=== PATIENT | male | born 1960 | race African-American/Black ===

== ENCOUNTER 2017-09-22 10:50 | Observation (INO) | payer OTHER ==
[2017-09-22] MEDS ORDERED: ASPIRIN 81 MG TABLET, CHEWABLE PO ONE (10:53)
[2017-09-22 11:15] LABS: ABSOLUTE EOSINOPHILS # (AUTO) 0.2 10^3/uL (0.0-0.6); ABSOLUTE LYMPHOCYTES (AUTO) 1.5 10^3/uL (0.5-4.7); ABSOLUTE MONOCYTES (AUTO) 0.7 10^3/uL (0.1-1.4); ABSOLUTE NEUT (AUTO) 3.3 10^3/uL (1.7-8.2); BASOPHILS % (AUTO) 0.8 % (0-2); EOSINOPHILS % (AUTO) 3.7 % (0-6); HEMATOCRIT 46.5 % (37.9-51.0); HGB HCT DIFFERENCE 1.5; MEAN CORPUSCULAR HEMOGLOBIN 31.9 pg (27.0-33.4); MEAN CORPUSCULAR HGB CONC 34.4 g/dL (32.0-36.0); MEAN CORPUSCULAR VOLUME 93 fl (80-97); MONOCYTES % (AUTO) 11.5 % (3-13); RED BLOOD COUNT 5.02 10^6/uL (4.35-5.55); WHITE BLOOD COUNT 5.7 10^3/uL (4.0-10.5)
--- NOTE | 2017-09-22 11:24 | RADIOLOGY REPORT (SQ) ---
EXAM DESCRIPTION: CHEST SINGLE VIEW COMPLETED DATE/TIME: 09/22/2017 11:12 am REASON FOR STUDY: bed 2 cp COMPARISON: None. EXAM PARAMETERS: NUMBER OF VIEWS: One view. TECHNIQUE: Single frontal radiographic view of the chest acquired. RADIATION DOSE: NA LIMITATIONS: None. FINDINGS: LUNGS AND PLEURA: Pulmonary vascular congestion. Cannot exclude a limited infiltrate in t he lingula. Minimal left pleural effusion. MEDIASTINUM AND HILAR STRUCTURES: No masses. Contour normal. HEART AND VASCULAR STRUCTURES: Heart size is borderline. There is no failure. BONES: No acute findings. HARDWARE: None in the chest. OTHER: No other significant finding. IMPRESSION: Borderline cardiomegaly with no failure. Cannot exclude a limited lingular pneumonia. TECHNICAL DOCUMENTATION: JOB ID: [id number] [employer]- All Rights Reserved
[2017-09-22 11:44] LABS: ALANINE AMINOTRANSFERASE 60 U/L (21-72); ALKALINE PHOSPHATASE 105 U/L (38-126); ANION GAP 9 (5-19); ASPARTATE AMINO TRANSFERASE 32 U/L (17-59); BILIRUBIN,DIRECT 0.5 mg/dL (0.0-0.4); BILIRUBIN,TOTAL 1.3 mg/dL (0.2-1.3); BLOOD UREA NITROGEN 11 mg/dL (7-20); CALCIUM 9.7 mg/dL (8.4-10.2); CARBON DIOXIDE 29 mmol/L (22-30); CHLORIDE 102 mmol/L (98-107); CREATINE KINASE 157 U/L (55-170); CREATININE RESULT 0.77 mg/dL (0.52-1.25); GLUCOSE 116 mg/dL (75-110); POTASSIUM 4.5 mmol/L (3.6-5.0); SODIUM 140.4 mmol/L (137-145); TOTAL PROTEIN 7.3 g/dL (6.3-8.2)
[2017-09-22 11:56] LABS: CREATINE KINASE MB 3.14 ng/mL (<4.55)
[2017-09-22 12:09] LABS: TROPONIN I 0.091 ng/mL
--- NOTE | 2017-09-22 13:05 | ER Document Report ---
ED Cardiac - General Chief Complaint: Shortness Of Breath Stated Complaint: CHEST PAIN Time Seen by Provider: 09/22/17 12:22 Notes: The patient is a 57-year-old male, past medical history hypertension, presents with 1 week of shortness of breath, dyspnea on exertion and intermittent left anterior chest pain that is worse with exertion. He went to his primary care physician at the [facility] this morning and was sent to the ER for further evaluation and treatment. The patient is not having any chest pain at rest. He denies leg swelling, fevers, nausea, vomiting, back pain, headache, numbness, tingling , syncope or abdominal pain. TRAVEL OUTSIDE OF THE [place] IN LAST 30 DAYS: No - Related Data Allergies/Adverse Reactions: shellfish derived Allergy (Unknown, Verified 09/22/17 12:26) Past Medical History - General Information source: Patient - Social History Smoking Status: Former Smoker Chew tobacco use (# tins/day): No Frequency of alcohol use: None Drug Abuse: None Family History: Reviewed & Not Pertinent Patient has suicidal ideation: No Patient has homicidal ideation: No - Past Medical History Cardiac Medical History: Reports: Hx Hypertension Renal/ Medical History: Denies: Hx Peritoneal Dialysis Review of Systems - Review of Systems Notes: REVIEW OF SYSTEMS: CONSTITUTIONAL: -fevers, -chills EENT: -eye pain, -difficulty swallowing, -nasal congestion CARDIOVASCULAR: +chest pain, -syncope. RESPIRATORY: -cough, +SOB GASTROINTESTINAL: -abdominal pain, - nausea, -vomiting, -diarrhea GENITOURINARY: -dysuria, -hematuria MUSCULOSKELETAL: -back pain, -neck pain SKIN: -rash or skin lesions. HEMATOLOGIC: -easy bruising or bleeding. LYMPHATIC: -swollen, enlarged glands. NEUROLOGICAL: -altered mental status or loss of consciousness, -headache, - neurologic symptoms PSYCHIATRIC: -anxiety, -depression. ALL OTHER SYSTEMS REVIEWED AND NEGATIVE. Physical Exam - Vital signs Vitals: Pulse Ox 93 09/22/17 10:53 - Notes Notes: PHYSICAL EXAMINATION: GENERAL: Well-appearing, well-nourished and in no acute distress. HEAD: Atraumatic, normocephalic. EYES: Pupils equal round and reactive to light, extraocular movements intact, sclera anicteric, conjunctiva are normal. ENT: nares patent, oropharynx clear without exudates. Moist mucous membranes. NECK: Normal range of motion, supple without lymphadenopathy LUNGS: Crackles in lower right lobe. Mild tachypnea. HEART: Tachycardia, regular rhythm. ABDOMEN: Soft, nontender, normoactive bowel sounds. No guarding, no rebound. No masses appreciated. EXTREMITIES: Normal range of motion, no pitting or edema. No cyanosis. NEUROLOGICAL: Cranial nerves grossly intact. Normal speech, normal gait. Normal sensory and motor exams. PSYCH: Normal mood, normal affect. SKIN: Warm, Dry, normal turgor, no rashes or lesions noted. Course - Re-evaluation Re-evalutation: Patient currently chest pain-free. His EKG shows LVH, but no STEMI criteria. Repeat EKG performed 1 hour later does not show any acute changes. His first troponin is 0.091. No old values to compare this to. CTA ordered due to tachycardia, tachypnea, shortness of breath and chest pain. CTA shows evidence of pulmonary edema. Patient has no history of CHF. Repeat troponin is 0.099 and patient remains without chest pain. Suspect the bump in troponin is from heart strain from new onset CHF and pulmonary edema. A dose of Lovenox was provided to the patient. Patient's pulse ox went down to 88% on room air and improved with 2 L nasal cannula. 09/22/17 14:[address] Thomas and he says the patient can remain at [facility]. Spoke to Dulce Maloney and she will admit patient as inpatient to telemetry for further evaluation and treatment. Lasix and Nitro provided to patient to help with pulmonary edema and hypertension. - Vital Signs Vital signs: Temp Pulse Resp BP Pulse Ox 98.5 F 41 H 154/111 H 91 L 09/22/17 11:06 09/22/17 13:01 09/22/17 13:00 09/22/17 13:01 - Laboratory Result Diagrams: 09/22/17 11:03 09/22/17 11:03 Laboratory results interpreted by me: 09/22/17 09/22/17 11:03 11:03 Glucose 116 H Direct Bilirubin 0.5 H NT-Pro-B Natriuret Pep 1290 H - Diagnostic Test Radiology reviewed: Image reviewed, Reports reviewed Radiology results interpreted by me: CTA Chest: 1. Bilateral effusions and cardiomegaly, patchy infiltrates as above. Findings likely related to congestive failure. 2. No pulmonary embolus detected. - EKG Interpretation by Nh EKG shows normal: Sinus rhythm, QRS Complexes Rate: Tachycardia Voltage: Consistant with LVH When compared to previous EKG there are: No significant change Critical Care Note - Critical Care Note Total time excluding time spent on procedures (mins): 35 Discharge - Discharge Clinical Impression: Hypoxia Pulmonary edema Qualifiers: Chronicity: acute Qualified Code(s): J81.0 - Acute pulmonary edema Chest pain Qualifiers: Chest pain type: unspecified Qualified Code(s): R07.9 - Chest pain, unspecified Condition: Stable Disposition: ADMITTED INPATIENT Admitting Provider: Hospitalist - [facility] Admitted: Telemetry
[2017-09-22] MEDS: ENOXAPARIN SODIUM INJ 120 MG/0.8 ML DISP.SYRIN SUBCUT SCH (13:11)
--- NOTE | 2017-09-22 13:11 | EKG REPORT ---
SEVERITY:- ABNORMAL ECG - SINUS TACHYCARDIA WITH IRREGULAR RATE 90-128 LEFT ATRIAL ABNORMALITY LEFT VENTRICULAR HYPERTROPHY BORDERLINE PROLONGED QT INTERVAL : Confirmed by: Franklin Thorne MD 22-Sep-2017 13:10:23
--- NOTE | 2017-09-22 13:11 | EKG REPORT ---
SEVERITY:- ABNORMAL ECG - SINUS TACHYCARDIA PROBABLE LEFT ATRIAL ABNORMALITY LEFT VENTRICULAR HYPERTROPHY BORDERLINE PROLONGED QT INTERVAL : Confirmed by: Franklin Thorne MD 22-Sep-2017 13:10:38
--- NOTE | 2017-09-22 13:41 | RADIOLOGY REPORT (SQ) ---
EXAM DESCRIPTION: CTA CHEST COMPLETED DATE/TIME: 09/22/2017 1:26 pm REASON FOR STUDY: tachypnea, SOB, chest pain, elevated troponin COMPARISON: Radiographs. TECHNIQUE: CT scan of the chest performed using helical scanning technique with dynamic intravenous contrast injection. Images reviewed with lung, soft tissue and bone windows. Reconstructed coronal and sagittal MPR images reviewed. Additional 3 dimensional post-processing performed to develop Maximal Intensity Projection images ([place] P). All images stored on PACS. All CT scanners at this facility use dose modulation, iterative reconstruction, and/or weight based d osing when appropriate to reduce radiation dose to as low as reasonably achievable (ALARA). [facility]: Dose Right [facility]: CareDose [facility]: Dose Right [facility]: Teradose 4D [facility]: Clickberry CONTRAST TYPE AND DOSE: contrast/concentration: Isovue 370.00 mg/ml; Total Contrast Delivered: 82.0 ml; Total Saline Delivered: 100.0 ml Contrast bolus optimized for the pulmonary arteries. Not diagnostic for the aorta RENAL FUNCTION: Creatinine 0.77 RADIATION DOSE: CT Rad equipment meets quality standard of care and radiation dose reduction techniq ues were employed. CTDIvol: 13.2 - 24.6 mGy. DLP: 941 mGy-cm. . LIMITATIONS: None. FINDINGS: LUNGS AND PLEURA: Volume loss and patchy airspace disease which is most confluent in the l eft upper lobe. Additional patchy ground-glass densities in the right upper lobe and right lower lob e. Mild volume loss left lower lobe. Small bilateral effusions. AORTA AND GREAT VESSELS: No overt aortic aneurysm. Aberrent right subclavian artery. Assessment for dissection and patency otherwise not possible due to lack of enhancement. HEART: Enlarged. No pericardial effusion. Moderate to marked coronary artery calcifications. PULMONARY ARTERIES: No emboli visualized in the main pulmonary arteries or the segmental branches. HILAR AND MEDIASTINAL STRUCTURES: Small nodes in the gilbert and mediastinum. Some of these are calcifi ed suggesting previous granulomatous disease. HARDWARE: None in the chest. UPPER ABDOMEN: No significant findings. Limited exam. THYROID AND OTHER SOFT TISSUES: No masses. No adenopathy. BONES: No acute or significant finding. 3D MIPS: Confirm above findings. OTHER: No other significant finding. IMPRESSION: 1. Bilateral effusions and cardiomegaly, patchy infiltrates as above. Findings likely r elated to congestive failure. 2. No pulmonary embolus detected. COMMENT: Quality ID # [id number]: Final reports with documentation of one or more dose reduction techniques (e.g., Automated exposure control, adjustment of the mA and/or kV according to patient size, use of iterative reconstruction technique) TECHNICAL DOCUMENTATION: JOB ID: [id number] [employer]- All Rights Reserved
[2017-09-22] MEDS ORDERED: FUROSEMIDE INJ/PF 20 MG/2 ML SDV IV ONE (13:58)
[2017-09-22] MEDS: NITROGLYCERIN 0.4 MG/TAB 25 TAB/BOTTLE SL PRN ×2 (14:49→15:01)
[2017-09-22] MEDS ORDERED: NITROGLYCERIN 0.4 MG/TAB 25 TAB/BOTTLE SL PRN (15:26)
[2017-09-22] MEDS ORDERED: TEMAZEPAM 15 MG CAPSULE PO PRN (15:26)
[2017-09-22] MEDS ORDERED: ONDANSETRON HCL INJ/PF 4 MG/2 ML SDV IV PRN (15:26)
--- NOTE | 2017-09-22 16:04 | PDOC H&P ---
History of Present Illness Admission Date/PCP: 09/22/17 14:48 Patient complains of: Increasing shortness of breath History of Present Illness: KALA GUILLEN is a 57 year old male male, with past medical history of hypertension, who presents with 1 week of shortness of breath, dyspnea on exertion and intermittent left anterior chest pain that is worse with exertion. He also admits to orthopnea over the last 2 days prior to admission. He has slept the last 2 nights sitting in a chair. He went to his primary care physician at the [facility] this morning and was sent to the ER for further evaluation and treatment. The patient is not having any chest pain at rest. He denies leg swelling, fevers, nausea, vomiting, back pain, headache, numbness, tingling , syncope or abdominal pain. He denies any myalgias or arthalgias. Past Medical History Cardiac Medical History: Reports: Hypertension Pulmonary Medical History: Reports: None EENT Medical History: Reports: None Neurological Medical History: Reports: None Endocrine Medical History: Reports: None Renal/ Medical History: Reports: None Malignancy Medical History: Reports: None GI Medical History: Reports: None Musculoskeltal Medical History: Reports: None Skin Medical History: Reports: Eczema Psychiatric Medical History: Reports: None Traumatic Medical History: Reports: None Hematology: Reports: None Infectious Medical History: Reports: None Past Surgical History Past Surgical History: Reports: None Social History Information Source: Patient Lives with: Family Smoking Status: Former Smoker Cigarettes Packs Per Day: 0.5 Number of Years Smokin Frequency of Alcohol Use: Occasional Hx Recreational Drug Use: No - Advance Directive Resuscitation Status: Full Code Surrogate healthcare decision maker:: No designated MPOA. Has 3 adult children Family History Family History: Reviewed & Not Pertinent, Hypertension Parental Family History Reviewed: Yes Children Family History Reviewed: Yes Sibling(s) Family History Reviewed.: Yes Medication/Allergy Home Medications: No Home Medications 09/22/17 Allergies/Adverse Reactions: shellfish derived Allergy (Unknown, Verified 09/22/17 12:26) Review of Systems Constitutional: PRESENT: weight gain Eyes: ABSENT: visual disturbances Ears: ABSENT: hearing changes Cardiovascular: PRESENT: dyspnea on exertion, edema, orthropnea Respiratory: PRESENT: cough, dyspnea Gastrointestinal: ABSENT: abdominal pain, constipation, diarrhea, hematemesis, hematochezia, nausea, vomiting Genitourinary: ABSENT: dysuria, hematuria Musculoskeletal: ABSENT: joint swelling Integumentary: ABSENT: rash, wounds Neurological: ABSENT: abnormal gait, abnormal speech, confusion, dizziness, focal weakness, syncope Psychiatric: ABSENT: anxiety, depression, homidical ideation, suicidal ideation Endocrine: ABSENT: cold intolerance, heat intolerance, polydipsia, polyuria Hematologic/Lymphatic: ABSENT: easy bleeding, easy bruising Physical Exam Vital Signs: Temp Pulse Resp BP Pulse Ox 98.5 F 42 H 163/130 H 92 09/22/17 11:06 09/22/17 14:55 09/22/17 14:55 09/22/17 14:55 General appearance: PRESENT: no acute distress, well-developed, well-nourished Head exam: PRESENT: atraumatic, normocephalic Eye exam: PRESENT: conjunctiva pink, EOMI, PERRLA. ABSENT: scleral icterus Ear exam: PRESENT: normal external ear exam Neck exam: ABSENT: carotid bruit, JVD, lymphadenopathy, thyromegaly Respiratory exam: PRESENT: crackles, symmetrical, unlabored - bilateral bases Cardiovascular exam: PRESENT: RRR. ABSENT: diastolic murmur, rubs, systolic murmur Pulses: PRESENT: normal dorsalis pedis pul Vascular exam: PRESENT: normal capillary refill GI/Abdominal exam: PRESENT: normal bowel sounds, soft. ABSENT: distended, guarding, mass, organolmegaly, rebound, tenderness Rectal exam: PRESENT: deferred Extremities exam: PRESENT: full ROM, +1 edema - bilateral to ankles. ABSENT: calf tenderness, clubbing, pedal edema Musculoskeletal exam: PRESENT: ambulatory Neurological exam: PRESENT: alert, awake, oriented to person, oriented to place , oriented to time, oriented to situation, CN II-XII grossly intact. ABSENT: motor sensory deficit Psychiatric exam: PRESENT: appropriate affect, normal mood. ABSENT: homicidal ideation, suicidal ideation Skin exam: PRESENT: dry, intact, warm. ABSENT: cyanosis, rash Results Impressions: Chest X-Ray 09/22/17 10:53 IMPRESSION: Borderline cardiomegaly with no failure. Cannot exclude a limited lingular pneumonia. Chest/Abdomen CTA 09/22/17 12:23 IMPRESSION: 1. Bilateral effusions and cardiomegaly, patchy infiltrates as above. Findings likely related to congestive failure. 2. No pulmonary embolus detected. Assessment & Plan - Diagnosis (1) Acute congestive heart failure Qualifiers: Congestive heart failure type: unspecified congestive heart failure type Qualified Code(s): I50.9 - Heart failure, unspecified Plan: Will diurese. Add beta saturnino. Continue linn inhibitor. Obtain transthoracic echo. Cardiology referral after echo is obtained (2) Chest pain Qualifiers: Chest pain type: unspecified Qualified Code(s): R07.9 - Chest pain, unspecified Is this a current diagnosis for this admission?: Yes Plan: Serial troponins, aspirin and nitrates prn (3) Hypoxia Is this a current diagnosis for this admission?: Yes Plan: Secondary to fluid volume overload (4) Pulmonary edema Qualifiers: Chronicity: acute Qualified Code(s): J81.0 - Acute pulmonary edema Is this a current diagnosis for this admission?: Yes Plan: Will diurese - Time Time Spent: 50 to 70 Minutes Critical Time spent with patient: 25-34 minutes Medications reviewed and adjusted accordingly: Yes Anticipated discharge: Home
[2017-09-22] MEDS: METOPROLOL TARTRATE PF/INJ 5 MG/5 ML SDV IV PRN (16:38)
[2017-09-22] MEDS: METOPROLOL TARTRATE 25 MG TABLET PO SCH (21:41)
[2017-09-22] MEDS: ATORVASTATIN CALCIUM 40 MG TABLET PO SCH (21:41)
[2017-09-22] MEDS ORDERED: METOPROLOL TARTRATE 25 MG TABLET PO SCH (22:00)
[2017-09-23] MEDS: METOPROLOL TARTRATE PF/INJ 5 MG/5 ML SDV IV PRN (00:49)
[2017-09-23] MEDS ORDERED: ENALAPRILAT DIHYDRATE INJ/PF 1.25 MG/1 ML SDV IV ONE (03:00)
[2017-09-23 08:20] LABS: HEMATOCRIT 46.1 % (37.9-51.0); HEMOGLOBIN 15.9 g/dL (13.5-17.0); HGB HCT DIFFERENCE 1.6; MEAN CORPUSCULAR HEMOGLOBIN 32.1 pg (27.0-33.4); MEAN CORPUSCULAR HGB CONC 34.5 g/dL (32.0-36.0); MEAN CORPUSCULAR VOLUME 93 fl (80-97); RED BLOOD COUNT 4.96 10^6/uL (4.35-5.55); WHITE BLOOD COUNT 5.2 10^3/uL (4.0-10.5)
[2017-09-23 08:43] LABS: ANION GAP 10 (5-19); BLOOD UREA NITROGEN 16 mg/dL (7-20); CALCIUM 9.8 mg/dL (8.4-10.2); CARBON DIOXIDE 29 mmol/L (22-30); CHLORIDE 100 mmol/L (98-107); CHOLESTEROL 147.09 mg/dL (0-200); CREATININE RESULT 0.89 mg/dL (0.52-1.25); Direct HDL 29 mg/dL (>40); GLUCOSE 114 mg/dL (75-110); POTASSIUM 4.7 mmol/L (3.6-5.0); SODIUM 138.5 mmol/L (137-145); TRIGLYCERIDES 101 mg/dL (<150)
[2017-09-23 08:53] LABS: DIRECT LDL 105 mg/dL (<100)
[2017-09-23] MEDS: LISINOPRIL 10 MG TABLET PO SCH (09:46)
[2017-09-23] MEDS: ASPIRIN 81 MG TABLET, ENT COATED PO SCH (09:46)
[2017-09-23] MEDS: ENOXAPARIN SODIUM INJ 120 MG/0.8 ML DISP.SYRIN SUBCUT SCH ×2 (09:47→21:02)
[2017-09-23] MEDS: METOPROLOL TARTRATE 25 MG TABLET PO SCH (09:47)
[2017-09-23] MEDS ORDERED: FUROSEMIDE 40 MG TABLET PO ONE (09:47)
[2017-09-23] MEDS ORDERED: LORATADINE 10 MG TABLET PO ONE (09:49)
--- NOTE | 2017-09-23 10:30 | Physician Advisory Note ---
Physician Advisor ProgressNote .: Pursuant to the plan for [facility], I have reviewed the medical record for this patient. Physician Advisor Statement: Nice documentation of Acute Pulm Edema, Hypoxemia (no indication of increased work of breathing being present to support dx of Ac Resp Failure instead). Please consider documentin. "Acute ____ type CHF" (ok to wait for ECHO report, just don't forget to include type after that) 2. "CP, suspect due to " 3. Medical necessity: if pt not felt safe to go home today, please document ongoing clinical reasons, & may then consider change to Inpatient status (breathing not back to baseline? hemodynamically not stable? "I AM CONCERNED ABOUT "?) (But if just held another night due to waiting for testing or other eval to be done, but pt stable & otherwise ok for d/c clnically, then keep as Obs.) Status: Appropriately brought in as Outpt Obs initially. See above. CK Supporting findings in chart for dx Acute ___ type CHF: (+) rales, BLE edema ankles, cardiomegaly, acute pulmonary edema, ...
--- NOTE | 2017-09-23 11:12 | RADIOLOGY REPORT (SQ) ---
EXAM DESCRIPTION: PARANASAL SINUSES COMPLETED DATE/TIME: 09/23/2017 10:40 am REASON FOR STUDY: right nasal drainage COMPARISON: None. NUMBER OF VIEWS: Three views TECHNIQUE: Images of the paranasal sinuses acquired. LIMITATIONS: None. FINDINGS: ORBITS: No fracture. No foreign body. SINUSES: There is opacification of the right maxillary sinus and likely opacification of the right fr ontal sinus. FACIAL BONES: No fracture. OTHER: No other significant finding. IMPRESSION: Sinus disease as described. TECHNICAL DOCUMENTATION: JOB ID: [id number] [employer]- All Rights Reserved
[2017-09-23] MEDS ORDERED: FLUTICASONE NASAL SPRAY 50 MCG/SPRY 120 SPRAY/16 GM NASL ONE (11:30)
[2017-09-23] MEDS ORDERED: AMOXICILLIN TR/POT CLAVULANATE 500-125 MG TAB PO ONE (15:00)
--- NOTE | 2017-09-23 16:58 | XCELERA REPORT ---
[address] [address] Transthoracic Echocardiogram Report Name: KALA GUILLEN Age: 57 yrs Gender: Male : 1960 Patient Status: Inpatient Patient Location: [address] [place] [address] Study Date: 09/23/2017 11:52 AM Height: 71 in Weight: 240 lb BSA: 2.3 m2 Procedure: A two-dimensional transthoracic echocardiogram with color flow and Doppler was performed. Study Quality: Fair. Reason For Study: DYSNEA / CHEST PAIN. History: DYSNEA / CHEST PAIN. Ordering Physician: RUIZ YARBROUGH Performed By: Janie Hoover Interpretation Summary The left ventricle is normal in size. There is normal left ventricular wall thickness. LV EF is 45% to 50% Left ventricular systolic function is mildly reduced. Doppler measurements suggest normal left ventricular diastolic function There is mild global hypokinesis of the left ventricle. There is no thrombus. The right ventricle is grossly normal size. The right atrium is normal. The left atrium is mildly dilated. There is no evidence of mitral valve prolapse. There is no mitral valve stenosis. There is a mild amount of mitral regurgitation There is no aortic valve stenosis There is no LVOT obstruction. No aortic regurgitation is present. There is no tricuspid stenosis. There is mild pulmonary hypertension by echo RVSP is 37 mm of Hg , with RA mean of 10. There is no pericardial effusion. MMode/2D Measurements & Calculations RVDd: 4.0 cm LVIDd: 5.6 cm FS: 22.5 % Ao root diam: 3.1 cm IVSd: 0.97 cm LVIDs: 4.3 cm EDV(Teich): 150.7 ml LVPWd: 1.0 cm ESV(Teich): 83.2 ml Ao root area: 7.7 cm2 EF(Teich): 44.8 % Doppler Measurements & Calculations MV E max mis: MV dec slope: Ao V2 max: LV V1 max P.3 cm/sec 115.3 cm/sec 1.4 mmHg MV A max mis: 704.5 cm/sec2 Ao max PG: LV V1 max: 32.1 cm/sec MV dec time: 5.3 mmHg 59.7 cm/sec MV E/A: 2.6 0.12 sec MR max mis: PA V2 max: TR max mis: 660.8 cm/sec 62.2 cm/sec 256.4 cm/sec MR max PG: PA max P.5 mmHg TR max P.6 mmHg 26.3 mmHg Left Ventricle The left ventricle is normal in size. There is normal left ventricular wall thickness. LV EF is 45% to 50%. Left ventricular systolic function is mildly reduced. Doppler measurements suggest normal left ventricular diastolic function. There is mild global hypokinesis of the left ventricle. There is no thrombus. Right Ventricle The right ventricle is grossly normal size. Atria The right atrium is normal. The left atrium is mildly dilated. Mitral Valve There is no evidence of mitral valve prolapse. There is no vegetation seen on the mitral valve. There is no mitral valve stenosis. There is a mild amount of mitral regurgitation. Aortic Valve There is no aortic valvular vegetation. There is no aortic valve stenosis. There is no LVOT obstruction. No aortic regurgitation is present. Tricuspid Valve There is no tricuspid stenosis. There is a trace amount of tricuspid regurgitation. There is mild pulmonary hypertension by echo. RVSP is 37 mm of Hg , with RA mean of 10. Pulmonic Valve There is no pulmonic valvular stenosis. There is no pulmonic valvular regurgitation. Great Vessels The aortic root is normal size. Effusions There is no pericardial effusion. : RUIZ YARBROUGH > Fabi Ridley
[2017-09-23] MEDS ORDERED: CLONIDINE HCL 0.1 MG TABLET PO PRN (17:36)
--- NOTE | 2017-09-23 17:50 | PDOC PROGRESS REPORT ---
Subjective Progress Note for:: 09/23/17 Subjective:: Patient states he feels better and would like to go home. He went on to complain about right sided nasal and sinus congestion. Reason For Visit: SOB, ACUTE CONGESTIVE HEART FAILURE Physical Exam Vital Signs: Temp Pulse Resp BP Pulse Ox 97.4 F 96 18 167/124 H 97 09/23/17 15:31 09/23/17 15:31 09/23/17 15:31 09/23/17 15:31 09/23/17 15:31 Intake & Output 09/22/17 09/23/17 09/24/17 06:59 06:59 06:59 Intake Total 1246 Balance 1246 Weight 108.8 kg General appearance: PRESENT: no acute distress, obese Head exam: PRESENT: atraumatic, normocephalic Eye exam: PRESENT: EOMI. ABSENT: scleral icterus Mouth exam: PRESENT: moist Neck exam: ABSENT: carotid bruit, JVD, lymphadenopathy, thyromegaly Respiratory exam: PRESENT: clear to auscultation meera. ABSENT: rales, rhonchi, wheezes Cardiovascular exam: PRESENT: RRR. ABSENT: diastolic murmur, rubs, systolic murmur Pulses: PRESENT: normal dorsalis pedis pul GI/Abdominal exam: PRESENT: normal bowel sounds, soft. ABSENT: distended, guarding, mass, organolmegaly, rebound, tenderness Rectal exam: PRESENT: deferred Extremities exam: PRESENT: full ROM. ABSENT: calf tenderness, clubbing, pedal edema Neurological exam: PRESENT: alert, awake, oriented to person, oriented to place , oriented to time, oriented to situation, CN II-XII grossly intact. ABSENT: motor sensory deficit Psychiatric exam: PRESENT: appropriate affect, normal mood. ABSENT: homicidal ideation, suicidal ideation Skin exam: PRESENT: dry, intact, warm. ABSENT: cyanosis, rash Results Laboratory Results: 09/23/17 07:49 09/23/17 07:49 09/23/17 09/23/17 07:49 07:49 WBC 5.2 RBC 4.96 Hgb 15.9 Hct 46.1 MCV 93 MCH 32.1 MCHC 34.5 RDW 13.0 Plt Count 225 Sodium 138.5 Potassium 4.7 Chloride 100 Carbon Dioxide 29 Anion Gap 10 BUN 16 Creatinine 0.89 Est GFR ( Amer) > 60 Est GFR (Non-Af Amer) > 60 Glucose 114 H Calcium 9.8 Triglycerides 101 Cholesterol 147.09 LDL Cholesterol Direct 105 H VLDL Cholesterol 20.0 HDL Cholesterol 29 L 09/22/17 09/23/17 09/23/17 19:39 01:27 07:49 Troponin I 0.113 0.122 0.091 Impressions: Chest X-Ray 09/22/17 10:53 IMPRESSION: Borderline cardiomegaly with no failure. Cannot exclude a limited lingular pneumonia. Chest/Abdomen CTA 09/22/17 12:23 IMPRESSION: 1. Bilateral effusions and cardiomegaly, patchy infiltrates as above. Findings likely related to congestive failure. 2. No pulmonary embolus detected. Sinuses X-Ray 09/23/17 00:00 IMPRESSION: Sinus disease as described. Assessment & Plan - Diagnosis (1) Hypertensive emergency Is this a current diagnosis for this admission?: Yes Plan: Patient presented with chest pain, sob and mildly elevated troponins. Patient blood pressure was 210/159 on admission. Patient currently on coreg, lisinopril , lasix, imdur and PRN clonidine. (2) Acute congestive heart failure Qualifiers: Congestive heart failure type: systolic Qualified Code(s): I50.21 - Acute systolic (congestive) heart failure Plan: Patient had mildly depressed EF on 45 to 50 present. This is most likely due to poorly controlled blood pressure. Patient now on coreg, lisinopril, imdur and lasix. Patient symptoms appear improved. (3) Chest pain Qualifiers: Chest pain type: unspecified Qualified Code(s): R07.9 - Chest pain, unspecified Is this a current diagnosis for this admission?: Yes Plan: Possible secondary to hypertension. Patient troponins were mildly elevated and he no longer has any chest pain. Patient will be referred to cardiology on discharge. (4) Hypoxia Is this a current diagnosis for this admission?: Yes Plan: Secondary to pulmonary edema now improved. (5) Pulmonary edema Qualifiers: Chronicity: acute Qualified Code(s): J81.0 - Acute pulmonary edema Is this a current diagnosis for this admission?: Yes Plan: Secondary to hypertension and CHF. Will continue with lasix. (6) Sinus congestion Is this a current diagnosis for this admission?: Yes Plan: Start patient on flonase and claratin. Patient may need to do angie pot at home. - Time Time Spent with patient: 15-24 minutes Anticipated discharge: Home Within: within 24 hours - Inpatient Certification Medical Necessity: Need Close Monitoring Due to Risk of Patient Decompensation - Patient blood pressure not well controlled.
[2017-09-23] MEDS ORDERED: ACETAMINOPHEN 325 MG TABLET PO PRN (20:01)
[2017-09-23] MEDS: FLUTICASONE NASAL SPRAY 50 MCG/SPRY 120 SPRAY/16 GM NASL SCH (21:02)
[2017-09-23] MEDS: ATORVASTATIN CALCIUM 40 MG TABLET PO SCH (21:03)
[2017-09-23] MEDS: CARVEDILOL 12.5 MG TABLET PO SCH (22:06)
[2017-09-24 07:42] LABS: ANION GAP 10 (5-19); BLOOD UREA NITROGEN 16 mg/dL (7-20); CARBON DIOXIDE 26 mmol/L (22-30); CHLORIDE 103 mmol/L (98-107); GLUCOSE 109 mg/dL (75-110); POTASSIUM 4.5 mmol/L (3.6-5.0); SODIUM 139.4 mmol/L (137-145)
[2017-09-24] MEDS: ENOXAPARIN SODIUM INJ 120 MG/0.8 ML DISP.SYRIN SUBCUT SCH (09:26)
[2017-09-24] MEDS: FLUTICASONE NASAL SPRAY 50 MCG/SPRY 120 SPRAY/16 GM NASL SCH (09:27)
[2017-09-24] MEDS: CARVEDILOL 12.5 MG TABLET PO SCH (09:27)
[2017-09-24] MEDS: LISINOPRIL 10 MG TABLET PO SCH (09:28)
[2017-09-24] MEDS: ASPIRIN 81 MG TABLET, ENT COATED PO SCH (09:28)
[2017-09-24 09:45] VITALS: BP 149/93
[2017-09-24] MEDS ORDERED: LORATADINE 10 MG TABLET PO SCH (10:00)
[2017-09-24] MEDS ORDERED: ISOSORBIDE MONONITRATE 30 MG TAB.ER.24H PO SCH (10:00)
--- NOTE | 2017-09-24 18:47 | PDOC DISCHARGE SUMMARY ---
General - Admit/Disc Date/PCP Admission Date/Primary Care Provider: 09/22/17 14:48 Discharge Date: 09/24/17 - Discharge Diagnosis (1) Hypertensive emergency Is this a current diagnosis for this admission?: Yes (3) Chest pain Is this a current diagnosis for this admission?: Yes (4) Hypoxia Is this a current diagnosis for this admission?: Yes (5) Pulmonary edema Is this a current diagnosis for this admission?: Yes (6) Sinus congestion Is this a current diagnosis for this admission?: Yes - Additional Information Resuscitation Status: Full Code Discharge Diet: Cardiac Discharge Activity: Activity As Tolerated, Balance Activity w/Rest, Weigh Daily Home Medications: Aspirin [Ecotrin 81 mg EC Tablet] 81 mg PO DAILY 30 Days #30 tabec 09/24/17 Atorvastatin Calcium [Lipitor 40 mg Tablet] 40 mg PO QHS 30 Days #30 tablet Carvedilol [Coreg 12.5 mg Tablet] 12.5 mg PO Q12 30 Days #60 tablet 09/24/17 Fluticasone Propionate [Flonase Nasal [place] 50 Mcg/[place] 16 gm] 2 spray NASL Q12 30 Days spray.pump 09/24/17 Isosorbide Mononitrate [Imdur 30 mg Tablet.er] 30 mg PO DAILY 30 Days #30 tab.er.24h 09/24/17 Lisinopril/Hydrochlorothiazide [Lisinopril-Hctz 20-25 mg Tab] 1 each PO DAILY # 30 tablet 09/24/17 Loratadine [Claritin 10 mg Tablet] 10 mg PO DAILY #30 tablet 09/24/17 Potassium Chloride 10 meq PO DAILY 30 Days #30 capsule.er 09/24/17 History of Present Illness Patient complains of: shortness of breath History of Present Illness: KALA GUILLEN is a 57 year old male presenting with progressive shortness of breath and intermittent chest pain. Hospital Course Hospital Course: Patient presented with progressive shortness of breath over 1 week and orthopnea. Patient had a cardiac echo which showed a slightly depressed EF of 45-50%. Patient also have pulmonary edema. Patient received Lasix which helped. Concerned that patient may have developed systolic heart failure from uncontrolled hypertension. Patient did present in hypertensive emergency and required multiple blood pressure medications to control his blood pressure. Patient also has obstructive sleep apnea and was supposed to use CPAP however he has not used his machine in over 8 years and states that his damage. Patient was advised to go to the [place] have his provider refer him to a library science professor at which point he will have a repeat sleep study done and given a new CPAP machine. Explained to patient that untreated obstructive sleep apnea could result in uncontrolled hypertension and heart failure and/or heart attack. Patient did have elevated troponin however this is most likely secondary to uncontrolled hypertension. Patient was started on Coreg 12.5 mg p.o. twice daily. Patient on lisinopril 20 mg and hydrochlorothiazide 25 mg. Patient also given potassium replacement as he he may need this being on a diuretic. Patient started on Imdur. Patient blood pressures did improve however his diastolic pressures tend to want to remain elevated. Advised patient that he should follow-up with his doctor and have his blood pressure medications adjusted gradually. Patient also has some hypoxemia but this is most likely related to his pulmonary edema. Patient states he was able to ambulate on the hallways and feel better while doing so. Patient counseled on a low-sodium diet and the importance of weighing himself. Patient denied any further symptoms after being treated. Patient did complain of sinus drainage. X-ray of the facial sinuses showed opacification of the right side of his face. Patient was started on Flonase and Claritin which he states he has noticed a difference. Patient was given a prescription for these medications on discharge. Physical Exam Vital Signs: Temp Pulse Resp BP Pulse Ox 97.5 F 93 18 149/93 H 96 09/24/17 09:54 09/24/17 09:54 09/24/17 09:54 09/24/17 09:54 09/24/17 09:54 Intake & Output 09/23/17 09/24/17 09/25/17 06:59 06:59 06:59 Intake Total 1246 1690 Balance 1246 1690 Weight 108.8 kg 104 kg General appearance: PRESENT: no acute distress, obese Head exam: PRESENT: normocephalic Eye exam: PRESENT: EOMI. ABSENT: scleral icterus Mouth exam: PRESENT: moist Neck exam: ABSENT: carotid bruit, JVD, lymphadenopathy, thyromegaly Respiratory exam: PRESENT: clear to auscultation meera. ABSENT: rales, rhonchi, wheezes Cardiovascular exam: PRESENT: RRR. ABSENT: diastolic murmur, rubs, systolic murmur GI/Abdominal exam: PRESENT: normal bowel sounds, soft. ABSENT: distended, guarding, mass, organolmegaly, rebound, tenderness Rectal exam: PRESENT: deferred Extremities exam: PRESENT: full ROM. ABSENT: calf tenderness, clubbing, pedal edema Neurological exam: PRESENT: alert, awake, oriented to person, oriented to place , oriented to time, oriented to situation, CN II-XII grossly intact. ABSENT: motor sensory deficit Psychiatric exam: PRESENT: appropriate affect, normal mood. ABSENT: homicidal ideation, suicidal ideation Skin exam: PRESENT: dry, intact, warm. ABSENT: cyanosis, rash Results Laboratory Results: 09/23/17 07:49 09/24/17 06:08 09/24/17 06:08 Sodium 139.4 Potassium 4.5 Chloride 103 Carbon Dioxide 26 Anion Gap 10 BUN 16 Creatinine 0.90 Est GFR ( Amer) > 60 Est GFR (Non-Af Amer) > 60 Glucose 109 Calcium 9.0 09/22/17 09/23/17 09/23/17 19:39 01:27 07:49 Troponin I 0.113 0.122 0.091 Impressions: Chest X-Ray 09/22/17 10:53 IMPRESSION: Borderline cardiomegaly with no failure. Cannot exclude a limited lingular pneumonia. Chest/Abdomen CTA 09/22/17 12:23 IMPRESSION: 1. Bilateral effusions and cardiomegaly, patchy infiltrates as above. Findings likely related to congestive failure. 2. No pulmonary embolus detected. Sinuses X-Ray 09/23/17 00:00 IMPRESSION: Sinus disease as described. Qualifiers PATEINT BEING DISCHARGED WITH ANY OF THE FOLLOWING DIAGNOSIS?: Heart Failure VTE patient discharged on overlapping Therapy?: Yes ID Pt discharged ACEI/ARBS?: Yes HF Pt being discharged on ACEI for LVEF less than 40%?: No HF Pt being discharged on ARBS for LVEF less than 40%?: No HF Pt discharged on evidence-based Beta Kirti:: Yes Plan Time Spent: Greater than 30 Minutes
== END 2017-09-24 10:26 | disposition home or self-care (01) ==
LOC: ER 10:50 → INTOOBSV 14:48 → EH 14:48 → 5 15:43
PROVIDERS: ADMIT Internal Medicine; ATTEND Internal Medicine
PROC: 5A09357 Assistance with Respiratory Ventilation, Less than 24 Consecutive Hours, Continuous Positive Airway Pressure (ICD-10-PCS; principal; 2017-09-22)
DX: I16.1 Hypertensive emergency (principal); R07.9 Chest pain, unspecified; I11.0 Hypertensive heart disease with heart failure; I50.21 Acute systolic (congestive) heart failure; J81.0 Acute pulmonary edema; R09.02 Hypoxemia; R09.81 Nasal congestion; G47.33 Obstructive sleep apnea (adult) (pediatric); Z79.82 Long term (current) use of aspirin; Z79.899 Other long term (current) drug therapy; R79.89 Other specified abnormal findings of blood chemistry; Z87.891 Personal history of nicotine dependence; Z82.49 Family history of ischemic heart disease and other diseases of the circulatory system
CPT/HCPCS: 93005; 99291; 96372; 96374; 36415 ×3; 82553; 82550; 85025; 85027; 80048 ×2; 80053; 84484 ×2; 80061; 83880; 93306; 71010; 70220; 71275; 93010; 94660; G0378 ×4; J1940; J1650 ×3; J3490 ×5

== ENCOUNTER 2018-05-15 09:36 | Emergency (ER) | payer OTHER ==
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
[2018-05-15 10:49] LABS: ABSOLUTE BASOPHILS # (AUTO) 0.1 10^3/uL (0.0-0.2); ABSOLUTE LYMPHOCYTES (AUTO) 1.1 10^3/uL (0.5-4.7); ABSOLUTE MONOCYTES (AUTO) 0.8 10^3/uL (0.1-1.4); ABSOLUTE NEUT (AUTO) 7.2 10^3/uL (1.7-8.2); BASOPHILS % (AUTO) 0.6 % (0-2); EOSINOPHILS % (AUTO) 0.4 % (0-6); HEMATOCRIT 39.2 % (37.9-51.0); HEMOGLOBIN 13.7 g/dL (13.5-17.0); MEAN CORPUSCULAR HEMOGLOBIN 32.7 pg (27.0-33.4); MEAN CORPUSCULAR VOLUME 93 fl (80-97); MONOCYTES % (AUTO) 8.5 % (3-13); PLATELET COUNT 237 10^3/uL (150-450); RED BLOOD COUNT 4.21 10^6/uL (4.35-5.55); RED CELL DISTRIBUTION WIDTH 13.2 % (11.5-14.0); SEGMENTED NEUTROPHILS % (AUTO) 78.5 % (42-78); TOTAL CELLS COUNTED % (AUTO) 100 %; WHITE BLOOD COUNT 9.2 10^3/uL (4.0-10.5)
[2018-05-15 11:01] LABS: ALANINE AMINOTRANSFERASE 29 U/L (21-72); ALBUMIN 3.4 g/dL (3.5-5.0); ALCOHOL 12 mg/dL (NONE DETECTED); ALKALINE PHOSPHATASE 75 U/L (38-126); ANION GAP 9 (5-19); ASPARTATE AMINO TRANSFERASE 35 U/L (17-59); BILIRUBIN,DIRECT 0.3 mg/dL (0.0-0.4); BILIRUBIN,TOTAL 0.9 mg/dL (0.2-1.3); BLOOD UREA NITROGEN 12 mg/dL (7-20); CALCIUM 8.7 mg/dL (8.4-10.2); CARBON DIOXIDE 27 mmol/L (22-30); CHLORIDE 99 mmol/L (98-107); CREATINE KINASE 727 U/L (55-170); GLUCOSE 139 mg/dL (75-110); LIPASE 20.6 U/L (23-300); POTASSIUM 4.3 mmol/L (3.6-5.0); SODIUM 134.6 mmol/L (137-145); TOTAL PROTEIN 6.5 g/dL (6.3-8.2)
[2018-05-15 11:12] LABS: CREATINE KINASE MB 4.02 ng/mL (<4.55)
[2018-05-15 11:14] LABS: TROPONIN I 0.052 ng/mL
[2018-05-15] MEDS ORDERED: ASPIRIN 81 MG TABLET, CHEWABLE PO ONE (11:23)
[2018-05-15 11:34] LABS: APPEARANCE,URINE SLIGHTLY-CLOUDY; BILIRUBIN,URINE NEGATIVE (NEGATIVE); COLOR,URINE YELLOW; GLUCOSE, URINE NEGATIVE (NEGATIVE); KETONES,URINE NEGATIVE (NEGATIVE); LEUKOCYTE ESTERASE,URINE NEGATIVE (NEGATIVE); NITRITE,URINE NEGATIVE (NEGATIVE); PROTEIN,URINE NEGATIVE (NEGATIVE); URINE AMPHETAMINES SCREEN NEGATIVE; URINE BARBITURATES SCREEN NEGATIVE; URINE BENZODIAZEPINES SCREEN NEGATIVE; URINE COCAINE SCREEN UNCONFIRMED POSITIVE; URINE MARIJUANA (THC) SCREEN NEGATIVE; URINE METHADONE SCREEN NEGATIVE; URINE PHENCYCLIDINE SCREEN NEGATIVE; URINE SPECIFIC GRAVITY 1.018
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
[2018-05-15] MEDS ORDERED: ACETAMINOPHEN 325 MG TABLET PO ONE (15:10)
[2018-05-15 18:24] VITALS: BP 151/98
--- NOTE | 2018-05-15 21:57 | EKG REPORT ---
SEVERITY:- ABNORMAL ECG - SINUS RHYTHM MULTIPLE ATRIAL PREMATURE COMPLEXES PROBABLE LEFT ATRIAL ABNORMALITY LVH WITH SECONDARY REPOLARIZATION ABNORMALITY : Confirmed by: Shante Duong 15-May-2018 21:56:40
--- NOTE | 2018-05-15 21:57 | EKG REPORT ---
SEVERITY:- ABNORMAL ECG - SINUS RHYTHM MULTIPLE ATRIAL PREMATURE COMPLEXES PROBABLE LEFT ATRIAL ABNORMALITY PROBABLE LEFT VENTRICULAR HYPERTROPHY BORDERLINE PROLONGED QT INTERVAL : Confirmed by: Shante Duong 15-May-2018 21:56:55
== END 2018-05-15 18:24 | disposition home or self-care (01) ==
LOC: ER 09:36
DX: S20.212A Contusion of left front wall of thorax, initial encounter (principal); S00.01XA Abrasion of scalp, initial encounter; S40.212A Abrasion of left shoulder, initial encounter; R07.9 Chest pain, unspecified; Y00.XXXA Assault by blunt object, initial encounter; Y92.59 Other trade areas as the place of occurrence of the external cause; I10 Essential (primary) hypertension; F12.10 Cannabis abuse, uncomplicated; F14.10 Cocaine abuse, uncomplicated; F17.200 Nicotine dependence, unspecified, uncomplicated; Z91.013 Allergy to seafood
CPT/HCPCS: 36415; 70450; 71045; 80053; 80307; 81001; 82550; 82553; 83690; 84484; 85025; 93005; 93010; 99285

== ENCOUNTER 2018-06-26 10:51 | Emergency (ER) | payer OTHER ==
[2018-06-26 11:04] VITALS: BP 113/65
[2018-06-26] MEDS ORDERED: KETOROLAC TROMETHAMINE 60 MG/2 ML SDV IM ONE (11:31)
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
[2018-06-26] MEDS ORDERED: DIPH/PERTUSS(ACELL)/TETANUS VAC/PF 0.5 ML SYR (>=10YO) IM ONE (12:18)
[2018-06-26] MEDS ORDERED: BACITRACIN ZINC OINTMENT 15 GM TP ONE (12:18)
[2018-06-26 12:30] LABS: ABSOLUTE LYMPHOCYTES (AUTO) 0.6 10^3/uL (0.5-4.7); ABSOLUTE MONOCYTES (AUTO) 0.4 10^3/uL (0.1-1.4); ABSOLUTE NEUT (AUTO) 5.6 10^3/uL (1.7-8.2); BASOPHILS % (AUTO) 0.4 % (0-2); EOSINOPHILS % (AUTO) 0.1 % (0-6); HEMATOCRIT 42.6 % (37.9-51.0); HEMOGLOBIN 14.6 g/dL (13.5-17.0); LYMPHOCYTES % (AUTO) 9.1 % (13-45); MEAN CORPUSCULAR HEMOGLOBIN 32.2 pg (27.0-33.4); MEAN CORPUSCULAR HGB CONC 34.3 g/dL (32.0-36.0); MEAN CORPUSCULAR VOLUME 94 fl (80-97); MONOCYTES % (AUTO) 5.9 % (3-13); PLATELET COUNT 251 10^3/uL (150-450); RED BLOOD COUNT 4.54 10^6/uL (4.35-5.55); RED CELL DISTRIBUTION WIDTH 12.8 % (11.5-14.0); SEGMENTED NEUTROPHILS % (AUTO) 84.5 % (42-78); TOTAL CELLS COUNTED % (AUTO) 100 %; WHITE BLOOD COUNT 6.6 10^3/uL (4.0-10.5)
[2018-06-26 13:03] LABS: ALANINE AMINOTRANSFERASE 23 U/L (21-72); ALBUMIN 3.7 g/dL (3.5-5.0); ALCOHOL 38 mg/dL (NONE DETECTED); ALKALINE PHOSPHATASE 102 U/L (38-126); ANION GAP 14 (5-19); ASPARTATE AMINO TRANSFERASE 28 U/L (17-59); BILIRUBIN,DIRECT 0.3 mg/dL (0.0-0.4); BILIRUBIN,TOTAL 0.7 mg/dL (0.2-1.3); BLOOD UREA NITROGEN 12 mg/dL (7-20); CARBON DIOXIDE 26 mmol/L (22-30); CHLORIDE 101 mmol/L (98-107); GLUCOSE 128 mg/dL (75-110); POTASSIUM 3.8 mmol/L (3.6-5.0); SODIUM 140.7 mmol/L (137-145); TOTAL PROTEIN 6.8 g/dL (6.3-8.2)
== END 2018-06-26 12:35 | disposition home or self-care (01) ==
LOC: ER 10:51
DX: S80.812A Abrasion, left lower leg, initial encounter (principal); T14.8XXA Other injury of unspecified body region, initial encounter; M79.651 Pain in right thigh; Y04.8XXA Assault by other bodily force, initial encounter; I10 Essential (primary) hypertension
CPT/HCPCS: 99284; 96372; 90471; 36415; 80307; 85025; 80053; 73552; 73564; 70450; 72125; 90715; J1885; J3490